=== PATIENT | female | born 2005 | race Two or more races ===

== ENCOUNTER 2023-04-12 06:52 | Day surgery (SDC) | payer OTHER ==
[~2023-04-12 06:52] MED LIST: LEVO-T25 MCG PO
== END 2023-04-12 12:00 | disposition home or self-care (01) ==
LOC: CIR.AMB 06:52
PROVIDERS: ATTEND Surgery
DX: D24.2 Benign neoplasm of left breast (principal); Z20.822 Contact with and (suspected) exposure to COVID-19